=== PATIENT | female | born 2000 | race Caucasian/White ===

== ENCOUNTER 2023-03-13 22:42 | Emergency (ER) | payer OTHER ==
[~2023-03-13] VITALS: Ht 144.8 cm; Wt 47.6 kg
[2023-03-14 01:45] VITALS: BP 121/79; TEMP 97.8; O2SAT 98
== END 2023-03-14 01:46 | disposition home or self-care (01) ==
LOC: ER 23:00
DX: T19.2XXA Foreign body in vulva and vagina, initial encounter (principal); X58.XXXA Exposure to other specified factors, initial encounter; Y93.89 Activity, other specified; Y92.89 Other specified places as the place of occurrence of the external cause; Y99.8 Other external cause status